=== PATIENT | female | born 1965 | race Caucasian/White ===

== ENCOUNTER → 2016-05-27 | Outpatient (CLI) | payer OTHER | END | disposition home or self-care (01) | LOC: MA 05-20 14:00 | PROC: BH02ZZZ Plain Radiography of Bilateral Breasts (ICD-10-PCS; principal; 2016-05-27) | DX: Z12.31 Encounter for screening mammogram for malignant neoplasm of breast (principal) | CPT/HCPCS: G0202 ==

== ENCOUNTER → 2016-06-14 | Outpatient (CLI) | payer OTHER | END | disposition home or self-care (01) | LOC: US 17:13 | PROC: BW4GZZZ Ultrasonography of Pelvic Region (ICD-10-PCS; principal; 2016-06-14) | PROC: BW40ZZZ Ultrasonography of Abdomen (ICD-10-PCS; 2016-06-14) | DX: Z85.038 Personal history of other malignant neoplasm of large intestine (principal) ==

== ENCOUNTER → 2016-07-19 | Outpatient (CLI) | payer OTHER | END | disposition home or self-care (01) | LOC: CT 15:30 | PROC: BW251ZZ Computerized Tomography (CT Scan) of Chest, Abdomen and Pelvis using Low Osmolar Contrast (ICD-10-PCS; principal; 2016-07-19) | DX: Z85.038 Personal history of other malignant neoplasm of large intestine (principal); R16.0 Hepatomegaly, not elsewhere classified | CPT/HCPCS: Q9967 ==

== ENCOUNTER → 2016-08-29 | Day surgery (SDC) | payer OTHER ==
[~2016-08-29] VITALS: Ht 154.9 cm; Wt 71.2 kg
[2016-08-29] VITALS (7 sets, daily range): BP systolic 154–183; BP diastolic 86–95
[2016-08-29 11:53] LABS: BASOPHIL % 0.1 % (0-2)
[2016-08-29 12:04] LABS: PLATELET COUNT 445 x10^3mcL (130-400); RED CELL DISTRIBUTION WIDTH 18.3 % (11.5-14.5)
== END | disposition home or self-care (01) ==
LOC: DS 11:03 → CT 14:00
PROVIDERS: Family Medicine
PROC: 0DBT3ZX (ICD-10-PCS; principal; 2016-08-29)
PROC: BW21ZZZ Computerized Tomography (CT Scan) of Abdomen and Pelvis (ICD-10-PCS; 2016-08-29)
DX: C78.6 Secondary malignant neoplasm of retroperitoneum and peritoneum (principal); R18.8 Other ascites; I10 Essential (primary) hypertension; E11.9 Type 2 diabetes mellitus without complications; Z85.038 Personal history of other malignant neoplasm of large intestine; Z98.0 Intestinal bypass and anastomosis status
CPT/HCPCS: 88344; C1894; J2001

== ENCOUNTER → 2016-09-30 | Outpatient (CLI) | payer OTHER ==
[2016-09-30 14:12] LABS: CREATININE SERUM 0.8 mg/dL (0.6-1.0)
== END | disposition home or self-care (01) ==
LOC: LB 13:27
DX: Z00.00 Encounter for general adult medical examination without abnormal findings (principal)

== ENCOUNTER → 2016-10-02 | Outpatient (CLI) | payer OTHER | END | disposition home or self-care (01) | LOC: CT 12:35 | PROC: BW251ZZ Computerized Tomography (CT Scan) of Chest, Abdomen and Pelvis using Low Osmolar Contrast (ICD-10-PCS; principal; 2016-10-02) | DX: C78.5 Secondary malignant neoplasm of large intestine and rectum (principal) | CPT/HCPCS: A9698; Q9967 ==

== ENCOUNTER 2016-10-26 00:03 | Inpatient (IN) | payer OTHER ==
[~2016-10-26] VITALS: Ht 154.9 cm; Wt 74.0 kg
[2016-10-26 01:33] LABS: BASOPHIL % 0.3 % (0-2)
[2016-10-26 01:37] LABS: PLATELET COUNT 430 x10^3mcL (130-400); RED CELL DISTRIBUTION WIDTH 19.1 % (11.5-14.5)
[2016-10-26 01:49] LABS: CALCIUM 8.5 mg/dL (8.5-10.1); CARBON DIOXIDE 30.8 mmol/L (21-32); CHLORIDE SERUM 102 mmol/L (98-107); CREATININE SERUM 0.7 mg/dL (0.6-1.0); GFR1 > 60 mL/min; GLUCOSE SERUM 217 mg/dL (74-106); POTASSIUM SERUM 4.2 mmol/L (3.5-5.1); SODIUM SERUM 136 mmol/L (136-145)
[2016-10-26 01:53] LABS: ALKALINE PHOSPHATASE 161 U/L (46-116); ALT/SGPT 15 U/L (14-59); AST/SGOT 25 U/L (15-37); BILIRUBIN TOTAL 0.2 mg/dL (0.20-1.00); LIPASE 250 IU/L (73-393); TOTAL PROTEIN, SERUM 6.6 g/dL (6.4-8.2)
[2016-10-26 01:54] LABS: ALBUMIN 2.3 g/dL (3.4-5.0)
[2016-10-26] MEDS ORDERED: APAP/HYDROCODON1 T15 PO (03:32)
[2016-10-26] MEDS ORDERED: LOSARTAN POTASS1 TAB PO (03:32)
[2016-10-26 04:34] VITALS: BP 156/83
[2016-10-26 05:40] LABS: PHOSPHOROUS 3.1 mg/dL (2.5-4.9)
[2016-10-26 05:42] LABS: CHOLESTEROL/HDL RATIO 5.9
[2016-10-26 05:48] LABS: FREE T4 0.89 ng/dL (0.76-1.46); FREE THYROXINE INDEX 1.9 ug/dL (1.4-4.5)
[2016-10-26 08:21] LABS: T3 TOTAL 0.84 ng/mL
[2016-10-26 09:01] LABS: microscopic required? NO
[2016-10-26 09:18] LABS: urine erythrocyte NEGATIVE (NEGATIVE)
[2016-10-26 09:33] LABS: AMPHETAMINE QUAL UR NONE DETECTED (NEG <=1000)
[2016-10-26 10:01] VITALS: BP 140/83
[2016-10-26 14:01] VITALS: BP 169/82
[2016-10-26 17:29] VITALS: BP 146/85
[2016-10-26 22:05] VITALS: BP 143/80
[2016-10-27 05:23] VITALS: BP 156/86
[2016-10-27 07:01] LABS: BASOPHIL % 0 % (0-2); PLATELET COUNT 416 x10^3mcL (130-400); RED CELL DISTRIBUTION WIDTH 18.5 % (11.5-14.5)
[2016-10-27 07:13] LABS: CALCIUM 9.4 mg/dL (8.5-10.1); CARBON DIOXIDE 32.8 mmol/L (21-32); CHLORIDE SERUM 98 mmol/L (98-107); CREATININE SERUM 0.7 mg/dL (0.6-1.0); GFR1 > 60 mL/min; GLUCOSE SERUM 125 mg/dL (74-106); POTASSIUM SERUM 4.2 mmol/L (3.5-5.1); SODIUM SERUM 136 mmol/L (136-145)
[2016-10-27 09:47] VITALS: BP 135/77
[2016-10-27] MEDS ORDERED: APAP/HYDROCODON1 T15 PO (11:31)
[2016-10-27] MEDS ORDERED: GLU500 PO (11:32)
[2016-10-27] MEDS ORDERED: COL100 PO (11:33)
[2016-10-27] MEDS ORDERED: LEVAQUIN750 MG PO (11:44)
[2016-10-27] MEDS ORDERED: BD LACTINEX1.4 MG PO (11:45)
[2016-10-27 11:47] VITALS: BP 135/77
== END 2016-10-27 14:10 | disposition home or self-care (01) | DRG 374 ==
LOC: ED 00:03 → DU 03:53
PROVIDERS: Emergency Medicine; ADMIT Family Medicine
DX: C18.9 Malignant neoplasm of colon, unspecified (principal); N17.0 Acute kidney failure with tubular necrosis; E43 Unspecified severe protein-calorie malnutrition; J18.9 Pneumonia, unspecified organism; R18.8 Other ascites; C79.9 Secondary malignant neoplasm of unspecified site; I10 Essential (primary) hypertension; E11.65 Type 2 diabetes mellitus with hyperglycemia; D64.9 Anemia, unspecified; E78.5 Hyperlipidemia, unspecified; Z68.30 Body mass index [BMI] 30.0-30.9, adult; E66.9 Obesity, unspecified; K44.9 Diaphragmatic hernia without obstruction or gangrene; Z85.038 Personal history of other malignant neoplasm of large intestine
CPT/HCPCS: 83880; 84439; J1956; J2270; J2405; J2543; J7030; Q0092

== ENCOUNTER 2016-11-16 19:58 | Emergency (ER) | payer OTHER ==
[~2016-11-16 19:58] MED LIST: APAP/HYDROCODON1 T15 PO; BD LACTINEX1.4 MG PO; COL100 PO; GLU500 PO; LEVAQUIN750 MG PO; LOSARTAN POTASS1 TAB PO
[2016-11-17 00:35] VITALS: BP 164/90
== END 2016-11-17 00:35 | disposition home or self-care (01) ==
LOC: ED 19:58
DX: C78.5 Secondary malignant neoplasm of large intestine and rectum (principal); R18.8 Other ascites; I10 Essential (primary) hypertension
CPT/HCPCS: J2270; Q0092